=== PATIENT | female | born 1955 | race Asian ===

== ENCOUNTER 2022-04-17 07:34 | Outpatient (CLI) | payer MEDICARE | END 2022-04-17 07:35 | disposition home or self-care (01) | LOC: BICULT 07:34 | PROVIDERS: ATTEND Internal Medicine Rheumatology | DX: Z13.820 Encounter for screening for osteoporosis (principal); R79.89 Other specified abnormal findings of blood chemistry; Z78.0 Asymptomatic menopausal state; M81.0 Age-related osteoporosis without current pathological fracture; K76.0 Fatty (change of) liver, not elsewhere classified | CPT/HCPCS: 76705; 77080 ==

== ENCOUNTER 2023-09-05 15:18 | Outpatient (CLI) | payer MEDICARE | END 2023-09-05 15:19 | disposition home or self-care (01) | LOC: BICMAMMO 15:18 | PROVIDERS: ATTEND Family Medicine | DX: Z12.31 Encounter for screening mammogram for malignant neoplasm of breast (principal); M81.0 Age-related osteoporosis without current pathological fracture; M85.852 Other specified disorders of bone density and structure, left thigh | CPT/HCPCS: 77063; 77067; 77080 ==

== ENCOUNTER 2024-10-08 14:59 | Outpatient (CLI) | payer MEDICARE, OTHER | END 2024-10-08 15:00 | disposition home or self-care (01) | LOC: BICMAMMO 14:59 | PROVIDERS: ATTEND Family Medicine | DX: Z12.31 Encounter for screening mammogram for malignant neoplasm of breast (principal) | CPT/HCPCS: 77063; 77067 ==